=== PATIENT | male | born 1940 | race Caucasian/White ===

== ENCOUNTER 2017-04-26 11:24 | Emergency (ER) | payer MEDICARE, OTHER ==
[~2017-04-26] VITALS: Ht 188 cm; Wt 115.3 kg
[~2017-04-26 11:24] MED LIST: ALLO100T30 PO; AMLO2.5T PO; AMLO5TAB2 PO; AMLO5TAB4 PO; APIX5TAB PO; ASPI-515 PO; ATOR-2 PO; CALC-123 PO; CEPH-368 PO; CHLO25TA PO; CHOL500045 PO; DOXA4TAB3 PO; ERGO500017 PO; FOLI-17 PO; FURO-92 PO; FURO40TA6 PO; GABA300C10 PO; HEPA5000 IV; HYDR-3237 PO; HYDR-3240 PO; INSU100C SQ-INSULIN; INSU100C5 SQ-INSULIN; INSU100I13 SC; INSU100I18 SQ-INSULIN; INSU100I29 SQ-INSULIN; INSU100V8 SQ; LANS30CA PO; LISI-170 PO; METO25TA91 PO; METO5TAB5 PO; OMEP-110 PO; OXYC-302 PO; PANT40TA3 PO; PEG31POW3 PO; PRAV80TA2 PO; ROCEPHIN IV; WARF5TAB7 PO
[2017-04-26 11:28] VITALS: BP 125/70
[2017-04-26] MEDS ORDERED: SODIUM CHLORIDE FLUSH 10ML SYR IVF ONE (12:30)
[2017-04-26 12:39] LABS: ASPARTATE AMINO TRANSFERASE 20 U/L (15-37); BLOOD UREA NITROGEN 28 mg/dL (7-18)
[2017-04-26 12:44] LABS: HEMATOCRIT 32.8 % (39.2-51.8); WHITE BLOOD COUNT 5.9 x10^3/uL (3.4-10)
[2017-04-26] MEDS ORDERED: OMNIPAQUE 350 MG/ML, 100ML BOTTLE ONE (15:20)
== END 2017-04-26 16:15 | disposition home or self-care (01) ==
LOC: ED 12:17
DX: M47.896 Other spondylosis, lumbar region (principal); D63.1 Anemia in chronic kidney disease; I13.0 Hypertensive heart and chronic kidney disease with heart failure and stage 1 through stage 4 chronic kidney disease, or unspecified chronic kidney disease; E11.22 Type 2 diabetes mellitus with diabetic chronic kidney disease; N18.9 Chronic kidney disease, unspecified; I50.9 Heart failure, unspecified; Z79.4 Long term (current) use of insulin; Z95.0 Presence of cardiac pacemaker; Z95.1 Presence of aortocoronary bypass graft
CPT/HCPCS: 36415; 71275; 72110; 74022; 80053; 81003; 83690; 85025; 99285; Q9967

== ENCOUNTER → 2017-07-07 | Outpatient (CLI) | payer MEDICARE, OTHER ==
[~2017-07-07] MED LIST changes: -HEPA5000 IV; +HEPA50002 IV
== END ==
LOC: CFH 14:11
PROVIDERS: ATTEND Family Medicine
DX: J90 Pleural effusion, not elsewhere classified (principal); C18.9 Malignant neoplasm of colon, unspecified
CPT/HCPCS: 74176

== ENCOUNTER → 2017-08-01 | Outpatient (CLI) | payer MEDICARE, OTHER | END | disposition home or self-care (01) | LOC: CFH 11:50 | PROVIDERS: ATTEND Internal Medicine Cardiovascular Disease | DX: J90 Pleural effusion, not elsewhere classified (principal); Z95.0 Presence of cardiac pacemaker | CPT/HCPCS: 71046 ==

== ENCOUNTER → 2017-08-04 | Outpatient (CLI) | payer MEDICARE, OTHER ==
[~2017-08-04] MED LIST changes: +LIDOCAINE 1%, 20ML ONE
== END ==
LOC: RAD 08:36
PROVIDERS: ATTEND Internal Medicine Cardiovascular Disease
DX: R91.8 Other nonspecific abnormal finding of lung field (principal); I50.23 Acute on chronic systolic (congestive) heart failure; I48.2 Chronic atrial fibrillation; Z95.0 Presence of cardiac pacemaker; Z98.890 Other specified postprocedural states
CPT/HCPCS: 32555; 71045; J3490